=== PATIENT | male | born 1960 | race Two or more races ===

== ENCOUNTER 2019-02-24 20:54 | Emergency (ER) | payer OTHER ==
[2019-02-24 21:06] VITALS: BP 154/90; PULSE 70; TEMP 98.3; BMI 26.6
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
== END 2019-02-24 22:20 | disposition home or self-care (01) ==
LOC: JER 20:54
DX: S09.8XXA Other specified injuries of head, initial encounter (principal); X95.8XXA Assault by other firearm discharge, initial encounter; Y93.89 Activity, other specified; Y92.480 Sidewalk as the place of occurrence of the external cause; Y99.8 Other external cause status; Y07.6 Multiple perpetrators of maltreatment and neglect; I10 Essential (primary) hypertension
CPT/HCPCS: 99281-25

== ENCOUNTER 2019-11-25 05:14 | Day surgery (SDC) | payer OTHER ==
[2019-11-23 17:54] VITALS: BMI 25.8
[2019-11-25] MEDS ORDERED: LIDOCAINE HCL 1%, 10 MG/ML (20ML VIAL) ONE (07:24)
--- NOTE | 2019-11-25 08:17 | HP ---
History & Physical Update - History History: No Change - Physical Physical: No Change - Assessment Assessment: No Change - Plan Plan: No Change
[2019-11-25] MEDS ORDERED: MIDAZOLAM HCL 2 MG/2 ML SINGLE DOSE VIAL ONE (08:25)
[2019-11-25] MEDS ORDERED: ceFAZolin SODIUM 1 GM VIAL IVPB ONE (08:30)
[2019-11-25] MEDS ORDERED: PROPOFOL 20 ML ONE (08:49)
[2019-11-25] MEDS ORDERED: BUPIVACAINE HCL/PF 0.5% (5MG/ML) 10 ML VIAL IJ ONE (09:01)
--- NOTE | 2019-11-25 09:16 | OP ---
Operative Note - Note: Operative Date: 11/25/19 Pre-Operative Diagnosis: left hip mass Operation: Excision left hip mass Findings: 5 x3 cm fibrofatty mass Post-Operative Diagnosis: Same as Pre-op Surgeon: Raymundo Hernandez Anesthesia: Local, MAC Specimens Removed: soft tissue mass Estimated Blood Loss (mls): 2 Operative Report Dictated: Yes
[2019-11-25 10:35] VITALS: TEMP 98
[2019-11-25] MEDS ORDERED: oxyCODONE HCL 5 MG TABLET PO PRN (11:20)
[2019-11-25] MEDS ORDERED: ONDANSETRON 4 MG/2 ML VIAL IVPUSH PRN (11:20)
[2019-11-25] MEDS ORDERED: LACTATED RINGERS SOLUTION 1,000 ML IV SCH (11:30)
--- NOTE | 2019-11-25 12:23 | OP ---
DATE OF OPERATION: 11/25/2019 PROCEDURE: Excision biopsy of left hip mass. PREOPERATIVE DIAGNOSIS: Left hip soft tissue mass. POSTOPERATIVE DIAGNOSIS: Left hip soft tissue mass. SURGEON: Raymundo Hernandez MD ANESTHESIA: Local with sedation. FINDINGS AND PROCEDURE: This is a 59-year-old male who presents with a slowly growing soft tissue mass of the left hip, was about 5 x 3 cm in size on examination, so patient was advised elective removal of the mass, and consent was obtained after discussing the risks, benefits, and alternatives of the procedure. Patient was brought to the operating room and placed in supine position. Intravenous sedation was given by the anesthesia team. The operative site was prepped and draped in the usual sterile fashion. Using 0.5% Marcaine, local anesthesia was administered to the proposed incision site. A 4-cm skin crease incision over the mass was made using scalpel blade No. 15, with dissection carried down to the subcutaneous tissue. Further dissection using Bovie cautery was done until the fibrofatty mass was completely excised down to its attachment to the underlying superficial muscle fascia. Hemostasis was achieved using Bovie cautery. The wound was closed with interrupted Polysorb 3-0 suture for the dermis and continuous Biosyn 4-0 suture for the subcuticular layer. The wound closure was reinforced with Steri-Strips and covered with pressure dressing. The patient was transferred to the postanesthesia care unit in satisfactory condition. ESTIMATED BLOOD LOSS: About 2 mL. WOUND CLASS: Clean. The patient received a gram of Ancef prior to the start of the procedure. Thomas [id number] MTDD
[2019-11-25 12:32] VITALS: BP 126/80; PULSE 55
--- NOTE | 2019-11-30 16:32 | PATH ---
Surgical Pathology Report Patient Name: DERRICK DICKSON [facility]. Rec. #: [id number] /Age/Gender: 1960 (Age: 59) / M Account: [id number] Location: [facility] SURGICAL Taken: 11/25/2019 Received: 11/25/2019 Reported: 11/30/2019 Physicians: Raymundo Hernandez M.D. Specimen(s) Received EXCISION LEFT HIP MASS Clinical History Left hip mass Final Diagnosis HIP MASS, LEFT, EXCISION: CONSISTENT WITH FIBROLIPOMA Electronically Signed Shante Nelson M.D. Gross Description Received in formalin labeled "left hip mass," is a 5.5 x 3.8 x 2.3 cm de la torre-yellow, irregular soft tissue mass. Sectioning reveals de la torre-yellow fibrofatty tissue. No areas of hemorrhage or necrosis are identified. 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 DL/11/25/2019 saudi/11/25/2019
== END 2019-11-25 11:40 | disposition home or self-care (01) ==
LOC: JASU-SURG 05:14
PROVIDERS: ATTEND Surgery
PROC: 0JBM0ZZ Excision of Left Upper Leg Subcutaneous Tissue and Fascia, Open Approach (ICD-10-PCS; principal; 2019-11-25 08:00)
DX: D21.22 Benign neoplasm of connective and other soft tissue of left lower limb, including hip (principal)
CPT/HCPCS: 88304-TC; 94760